=== PATIENT | female | born 1945 | race Caucasian/White ===

== ENCOUNTER 2020-03-14 11:03 | Emergency (ER) | payer MEDICARE, OTHER ==
[~2020-03-14] VITALS: Ht 157 cm; Wt 75.0 kg
[2020-03-14] MEDS ORDERED: TETANUS,DIPTH,PERTUSS P/F (BOOSTRIX) 0.5 ML VIAL IM ONE (11:30)
[2020-03-14] MEDS ORDERED: LIDOCAINE/EPI 2% 1:100,00 (XYLOCAINE) 20 ML VIAL INJ ONE (11:30)
--- NOTE | 2020-03-14 11:56 | ED Fall/Injury ---
General Chief Complaint: Trauma-Non Activation Stated Complaint: HEAD LAC Nursing Triage Note: [place] tripped on [place] curb. c/o laceration to R upper lip and R forehead, denies n/v, vision changes, LOC, gait changes Source: patient Exam Limitations: no limitations History of Present Illness Date Seen by Provider: Mar 14, 2020 Time Seen by Provider: 11:51 Initial Comments To ER with reports of a fall. She drove down from [facility] with her to go to [facility]. Upon stepping out of her car she fell face first and has laceration to the medial aspect of the right eyebrow. Unsure of last tetanus vaccine status. No loss of consciousness no headache no neck pain. She also has a small laceration to the buccal surface of the upper lip. She is on a baby aspirin only. No other antiplatelet or anticoagulant medications. Occurred: just prior to arrival Severity: moderate Context: unknown Loss of Consciousness: no loss of consciousness Associated Symptoms (Fall): Denies Symptoms Allergies and Home Medications Allergies Coded Allergies: No Known Drug Allergies (Unverified , 03/14/20) Patient Home Medication List Home Medication List Reviewed: Yes Review of Systems Review of Systems Constitutional: see HPI Eyes: No Symptoms Reported Ears, Nose, Mouth, Throat: no symptoms reported Respiratory: no symptoms reported Cardiovascular: no symptoms reported Genitourinary: no symptoms reported Musculoskeletal: no symptoms reported Skin: see HPI Psychiatric/Neurological: No Symptoms Reported Past [place]omd-Quoziq-Xgwpsc Hx Patient Social History Alcohol Use: Denies Use Recreational Drug Use: No Smoking Status: Never a Smoker Recent Foreign Travel: No Contact w/Someone Who Travel: No Recent Infectious Disease Expo: No Past Medical History Surgeries: Yes Tonsillectomy Respiratory: No Cardiac: Yes High Cholesterol, Hypertension Neurological: No Genitourinary: No Gastrointestinal: No Musculoskeletal: No Endocrine: No HEENT: No Cancer: No Psychosocial: No Integumentary: No Blood Disorders: No Physical Exam Vital Signs Vital Signs - First Documented 03/14/20 11:28 Temp 36.8 Pulse 80 Resp 18 B/P (MAP) 167/60 (95) Pulse Ox 98 Capillary Refill : Less Than 3 Seconds Height, Weight, BMI Height: '" Weight: lbs. oz. kg; 30.00 BMI Method: General Appearance: WD/WN, no apparent distress HEENT: PERRL/EOMI, normal ENT inspection, other (there is a 2 cm laceration with depth to the subcutaneous tissue to the medial aspect of the right eyebrow. This was anesthetized with 2 mL of 2% lidocaine with epinephrine. Wound was then scrubbed with chlorhexidine/saline then closed with one continuous suture size 5-0 Ethilon. There was a 1 cm laceration gaping by about 0.5 cm to the buccal surface of the top lip. This was anesthetized with 0.5 mL of 2% lidocaine with epinephrine. It was then closed with a buried 4-0 Vicryl suture as well as 2 simple interrupted Vicryl sutures.) Neck: non-tender, full range of motion Cardiovascular: regular rate, rhythm, no murmur Respiratory: normal breath sounds, no respiratory distress, no accessory muscle use Gastrointestinal: normal bowel sounds, non tender, soft Neurologic/Psychiatric: alert, normal mood/affect, oriented x 3 Skin: normal color, warm/dry [place] Coma Score Best Eye Response: (4) Open Spontaneously Best Verbal Response: (5) Oriented Best Motor Response: (6) Obeys Commands [place] Total: 15 Progress/Results/Core Measures Results/Orders My Orders Orders - IRVING SCALES APRN Ct Head/Cervical Spine Wo (03/14/20 11:30) Dipht,Pertuss(Acell),Tet Adult (Boostrix (03/14/20 11:30) Lidocaine/Epi 2% 1:100,000 (Xylocaine/Ep (03/14/20 11:30) Vital Signs/I&O 03/14/20 11:28 Temp 36.8 Pulse 80 Resp 18 B/P (MAP) 167/60 (95) Pulse Ox 98 Blood Pressure Mean: 95 Departure Impression Primary Impression: Fall Qualified Codes: W19.XXXA - Unspecified fall, initial encounter Additional Impressions: Eyebrow laceration Qualified Codes: S01.111A - Laceration without foreign body of right eyelid and periocular area, initial encounter Lip laceration Qualified Codes: S01.511A - Laceration without foreign body of lip, initial encounter Disposition: 01 HOME, SELF-CARE Condition: Stable Departure-Patient Inst. Decision time for Depature: 11:55 Referrals: NO,LOCAL PHYSICIAN (PCP/Family) Primary Care Physician Patient Instructions: Laceration Repair With Stitches (DC) IRVING SCALES MANAGER TRADE Mar 14, 2020 11:56
--- NOTE | 2020-03-14 12:37 | Diagnostic Imaging Report ---
PROCEDURE: CT head and CT cervical spine without contrast. TECHNIQUE: Multiple contiguous axial images were obtained through the brain and cervical spine without the use of intravenous contrast. Sagittal and coronal reformations through the cervical spine were then performed. Auto Exposure Controls were utilized during the CT exam to meet ALARA standards for radiation dose reduction. INDICATION: Fall. COMPARISON: None. FINDINGS: CT HEAD: No intracranial hemorrhage, mass effect, hydrocephalus or extra-axial fluid collections. No CT evidence of a territorial infarction. Osseous structures are intact. The visualized paranasal sinuses and mastoids are clear. CT cervical spine: Mild reversal of the normal cervical lordosis. Moderate degenerative endplate changes are greatest at C4-C7. No fractures. Moderate atherosclerotic calcifications in the left carotid bifurcation. Lung apices are clear. IMPRESSION: No acute intracranial or cervical spine CT findings. Dictated by: Dictated on workstation # [id number]
--- NOTE | 2020-03-14 12:57 | NUR ---
Patient was discharged by provider before boostrix was given
[2020-03-14 15:25] VITALS: BP 167/60
== END 2020-03-14 12:45 | disposition home or self-care (01) ==
LOC: ER 11:05
DX: S01.111A Laceration without foreign body of right eyelid and periocular area, initial encounter (principal); S01.511A Laceration without foreign body of lip, initial encounter; I10 Essential (primary) hypertension; R40.2142 Coma scale, eyes open, spontaneous, at arrival to emergency department; R40.2252 Coma scale, best verbal response, oriented, at arrival to emergency department; R40.2362 Coma scale, best motor response, obeys commands, at arrival to emergency department; Z79.82 Long term (current) use of aspirin; W01.198A Fall on same level from slipping, tripping and stumbling with subsequent striking against other object, initial encounter
CPT/HCPCS: 12011; 70450; 72125